=== PATIENT | female | born 1935 ===

== ENCOUNTER 2018-07-23 19:10 | Emergency (ER) | payer MEDICAID, MEDICARE ==
[2018-07-23 19:10] VITALS: BMI 23.8
[2018-07-23 19:15] VITALS: RESP 18
--- NOTE | 2018-07-23 20:30 | ED PDOC ---
HPI: Hypertension/Hypotension Time Seen by Provider: 07/23/18 19:20 Chief Complaint (Nursing): High Blood Pressure Chief Complaint (Provider): High Blood Pressure History Per: Patient History/Exam Limitations: no limitations Onset/Duration Of Symptoms: Days Current Symptoms Are (Timing): Still Present Additional Complaint(s): 83 y/o female with a PMHx of Alzheimer's sent to the ED by PMD for evaluation of high blood pressure. Patient has no previous history of HTN. Patient is complaining of headaches for the past few weeks. Patient states she was at a routine appointment with PMD and was intending on getting a flu shot. However, patient was noted to have high blood pressure in the office and was referred here for further evaluation by PMD. Patient states headaches do happen intermittently. Denies nausea, vomiting, visual disturbance, chest pain and shortness of breath. PMD: Kd Reeves Past Medical History Reviewed: Historical Data, Nursing Documentation, Vital Signs Vital Signs: Last Vital Signs Temp 98.2 F 07/23/18 19:12 Pulse 78 07/23/18 19:12 Resp 18 07/23/18 19:12 BP 193/115 H 07/23/18 19:12 Pulse Ox 99 07/23/18 19:12 - Medical History PMH: Alzheimer's Disease, Dementia, HTN, Hypercholesterolemia Denies: HIV - Surgical History Other surgeries: Bladder surgery for Prolapse - Family History Family History: States: Unknown Family Hx - Social History Current smoker - smoking cessation education provided: No Alcohol: None Drugs: Denies - Home Medications Home Medications: Ambulatory Orders Medication Instructions Recorded Aspirin [Aspirin Chewable] 162 mg PO DAILY 03/12/17 Cyanocobalamin (Vitamin B-12) 1,000 mcg IJ QD7 03/12/17 [B-12 Compliance] Donepezil HCl [Aricept] 5 mg PO HS 03/12/17 Lansoprazole [Prevacid] 30 mg PO DAILY 03/12/17 Memantine [Namenda] 10 mg PO BID 03/12/17 Alendronate Sodium [Alendronate 35 mg PO SAT 03/14/17 (Fosamax)] Acetaminophen [Tylenol 325mg tab] 650 mg PO Q4 PRN tab 03/27/17 Atorvastatin Calcium [Lipitor] 80 mg PO HS #30 03/27/17 Clonidine [Catapres-Tts 1] 0.1 mg TOP SAT #4 03/27/17 Divalproex [Depakote DR TAB] 125 mg PO BID #60 03/27/17 Donepezil [Aricept] 5 mg PO HS #30 tab 03/27/17 Lisinopril [Zestril] 10 mg PO DAILY #30 tab 03/27/17 amLODIPine [Norvasc] 2.5 mg PO DAILY #30 03/27/17 - Allergies Allergies/Adverse Reactions: Allergies Allergy/AdvReac Type Severity Reaction Status Date / Time No Known Allergies Allergy Verified 03/12/17 17:14 Review of Systems ROS Statement: Except As Marked, All Systems Reviewed And Found Negative Constitutional: Positive for: Other (High Blood Pressure) Eyes: Negative for: Vision Change Cardiovascular: Negative for: Chest Pain Respiratory: Negative for: Shortness of Breath Gastrointestinal: Negative for: Nausea, Vomiting Neurological: Positive for: Headache Physical Exam - Reviewed Nursing Documentation Reviewed: Yes Vital Signs Reviewed: Yes - Physical Exam Appears: Positive for: No Acute Distress Head Exam: Positive for: ATRAUMATIC, NORMOCEPHALIC Skin: Positive for: Normal Color, Warm, Dry Eye Exam: Positive for: EOMI, Normal appearance, PERRL Neck: Positive for: Normal, Painless ROM, Supple Cardiovascular/Chest: Positive for: Regular Rate, Rhythm. Negative for: Murmur Respiratory: Positive for: Normal Breath Sounds. Negative for: Respiratory Distress Gastrointestinal/Abdominal: Positive for: Normal Exam, Soft. Negative for: Tenderness Extremity: Positive for: Normal ROM. Negative for: Deformity Neurologic/Psych: Positive for: Alert, Oriented. Negative for: Motor/Sensory Deficits - Laboratory Results Result Diagrams: 07/23/18 20:50 07/23/18 20:50 - ECG O2 Sat by Pulse Oximetry: 99 (RA) Pulse Ox Interpretation: Normal Medical Decision Making Medical Decision Making: Time: 1932 Impression: 83 y/o female with accelerated HTN Plan: -- EKG -- CMP -- ED Urine Dipstick -- CBC with differentials -- Norvasc 5 mg PO -- Heplock Insertion -- Urinalysis 01:00 -Labs showed no clinical significant abnormalities. Blood pressure demonstrates improvement. Patient evaluated by crisis who find patient is stable for discharge home. Diagnosis of dementia and HTN. Patient advised to follow up with WILLIAM Durán. Counseling was provided and all questions were answered regarding diagnosis. There is agreement to discharge plan. Return if symptoms persist or worsen. Scribe Attestation: Documented by Godwin Banks acting as a scribe for Tani Miranda MD. Provider Scribe Attestation: All medical record entries made by the Scribe were at my direction and personally dictated by me. I have reviewed the chart and agree that the record accurately reflects my personal performance of the history, physical exam, medical decision making, and the department course for this patient. I have also personally directed, reviewed, and agree with the discharge instructions and disposition. Disposition - Clinical Impression Clinical Impression: Dementia, HTN (hypertension) - Disposition Disposition: Routine/Home Disposition Time: 01:00 Condition: STABLE Instructions: Dementia (Including Alzheimer Disease) Forms: [facility] (Bulgarian) Print Language: CITIZEN OF [place]
[2018-07-23 20:54] LABS: BASO # 0.1 K/uL (0.0-0.2); EOS # 0.1 K/uL (0.0-0.7); EOS % 1.6 % (0.0-4.0); HEMOGLOBIN 14.5 g/dL (12.0-16.0); LYMPH # 1.6 K/uL (1.0-4.3); LYMPH % 30.1 % (20.0-40.0); MEAN CELL VOLUME 89.3 fl (81.0-99.0); MEAN CORPUSCULAR HEMOGLOBIN 31.2 pg (27.0-31.0); MEAN CORPUSCULAR HGB CONC 34.9 g/dL (33.0-37.0); MEAN PLATELET VOLUME 8.7 fl (7.2-11.7); MONO # 0.3 K/uL (0.0-0.8); MONO % 5.9 % (0.0-10.0); NEUT # 3.2 K/uL (1.8-7.0); NEUT % 61.4 % (50.0-75.0); NRBC % 0.1 % (0.0-0.0); RBC 4.66 Mil/uL (3.80-5.20); WHITE BLOOD COUNT 5.2 K/uL (4.8-10.8)
[2018-07-23 21:04] LABS: ALB/GLOB RATIO 1.3 (1.0-2.1); ALT/SGPT 19 U/L (9-52); AST/SGOT 24 U/L (14-36); BLOOD UREA NITROGEN 20 mg/dl (7-17); CALCIUM 9.4 mg/dL (8.4-10.2); GFR NON-AFRICAN AMERICAN > 60
[2018-07-23 22:54] LABS: URINE BACTERIA RARE (<OCC); URINE BILIRUBIN NEGATIVE (NEGATIVE); URINE BLOOD NEGATIVE (NEGATIVE); URINE CLARITY CLEAR (Clear); URINE COLOR STRAW (YELLOW); URINE GLUCOSE (UA) NEG (Normal); URINE LEUKOCYTE ESTERASE NEG Leu/uL (Negative); URINE PROTEIN NEGATIVE (NEGATIVE); URINE UROBILINOGEN 0.2-1.0 mg/dL (0.2-1.0)
[2018-07-24 00:57] VITALS: BP 152/85; PULSE 64; TEMP 98.6
[2018-07-24 01:12] VITALS: O2SAT 99
--- NOTE | 2018-07-24 06:36 | CARD ---
APPROVED REPORT Date of service: 07/23/2018 EKG Measurement Heart [id number] ID [id number] <Conclusion> Normal sinus rhythm Left axis deviation Right bundle branch block Abnormal ECG
== END 2018-07-24 02:48 | disposition home or self-care (01) ==
LOC: H.ER 19:10 → EDBD 19:10 → H.ER 07-24 02:48
DX: I10 Essential (primary) hypertension (principal); F02.80 Dementia in other diseases classified elsewhere, unspecified severity, without behavioral disturbance, psychotic disturbance, mood disturbance, and anxiety; G30.9 Alzheimer's disease, unspecified; E78.00 Pure hypercholesterolemia, unspecified